=== PATIENT | male | born 1970 | race Caucasian/White ===

== ENCOUNTER 2021-03-19 17:28 | Inpatient (IN) | payer BC, MEDICAID ==
[2021-03-19] MEDS ORDERED: Sodium Chloride 0.9% 10 ML Syringe FLUSH PRN (18:08)
--- NOTE | 2021-03-19 18:11 | EDM.PDOC ---
ED HPI GENERAL MEDICAL PROBLEM - General Chief Complaint: Abdominal Pain Stated Complaint: ABDOMINAL LUMP Time Seen by Provider: 03/19/21 17:55 Source of Information: Reports: Patient, RN Notes Reviewed History Limitations: Reports: No Limitations - History of Present Illness INITIAL COMMENTS - FREE TEXT/NARRATIVE: 50-year-old gentleman presents emergency department today with a mass that has developed in his abdomen on the left side over the last couple days it is warm to the touch it is tender to the touch he does not have any nausea or vomiting still passing gas normal bowel movements history of gastric bypass and multiple surgeries patient states 70 Left Upper Abdomen Pain Score (Numeric/FACES): 7 - Related Data Allergies Allergy/AdvReac Type Severity Reaction Status Date / Time prochlorperazine edisylate Allergy Muscle Verified 03/19/21 17:51 [From Compazine] Aches trazodone Allergy Other Verified 03/19/21 17:51 venom-honey bee Allergy Swollen Verified 03/19/21 17:51 [bee venom (honey bee)] Tongue Home Meds: Home Meds Lisinopril 10 mg PO DAILY 09/02/14 [History] Pedi Multivit #22/Vit D3/Vit K [Multivitamins Chewables Tablet] 1 each PO DAILY 09/02/14 [History] Cholecalciferol (Vitamin D3) [Vitamin D3] 1 tab PO DAILY 05/31/15 [History] Calcium Carbonate [Calcium] 500 mg PO BID 10/03/18 [History] Ferrous Sulfate 325 mg PO BID 10/03/18 [History] Vitamin B Complex [B Complex] 1 each PO DAILY 10/03/18 [History] Past Medical History HEENT History: Reports: Cataract Musculoskeletal History: Reports: Other (See Below) Psychiatric History: Reports: ADD, Anxiety, Bipolar Hematologic History: Reports: Iron Deficiency - Infectious Disease History Infectious Disease History: Reports: Chicken Pox - Past Surgical History HEENT Surgical History: Reports: Other (See Below) Other HEENT Surgeries/Procedures: esphagaus surg GI Surgical History: Reports: Bariatric Procedure, Cholecystectomy, Colonoscopy, EGD, Hernia, Abdominal, Lysis of Adhesions, Small Bowel, Other (See Below) Other GI Surgeries/Procedures: mesh Musculoskeletal Surgical History: Reports: Other (See Below) Other Musculoskeletal Surgeries/Procedures:: knee cap, left wrist Social & Family History - Family History Family Medical History: No Pertinent Family History - Tobacco Use Tobacco Use Status *Q: Former Tobacco User Years of Tobacco use: 30 Packs/Tins Daily: 0.5 Used Tobacco, but Quit: Yes Month/Year Tobacco Last Used: March 2021 Second Hand Smoke Exposure: No - Caffeine Use Caffeine Use: Reports: Coffee, Energy Drinks, Soda, Tea - Alcohol Use Days Per Week of Alcohol Use: 2 Number of Drinks Per Day: 8 Total Drinks Per Week: 16 - Recreational Drug Use Recreational Drug Use: No ED ROS GENERAL - Review of Systems Review Of Systems: See Below Constitutional: Denies: Fever, Chills HEENT: Reports: No Symptoms Respiratory: Reports: No Symptoms Cardiovascular: Reports: No Symptoms GI/Abdominal: Reports: Abdominal Pain, Flatus, Other (Abdominal mass). Denies: Constipation, Diarrhea, Nausea, Vomiting : Reports: No Symptoms ED EXAM, GI/ABD - Physical Exam Exam: See Below Exam Limited By: No Limitations General Appearance: Alert, WD/WN, No Apparent Distress Respiratory/Chest: No Respiratory Distress, Lungs Clear, Normal Breath Sounds, No Accessory Muscle Use, Chest Non-Tender Cardiovascular: Regular Rate, Rhythm, No Murmur GI/Abdominal Exam: Soft, No Distention, Tender, Other (There is an abdominal mass it is in between the left upper and lower quadrants it is firm and is tender to the touch it is warm) Course - Vital Signs Last Recorded V/S: Last Vital Signs Temp 97.7 F 03/19/21 17:57 Pulse 90 03/19/21 19:41 Resp 20 03/19/21 17:57 BP 114/71 03/19/21 19:41 Pulse Ox 97 03/19/21 19:41 - Orders/Labs/Meds Orders: Active Orders 24 hr Category Date Time Status Peripheral IV Care [RC] . DIRECTED Care 03/19/21 18:08 Active Iopamidol [Isovue-300 (61%)] Med 03/19/21 19:00 Active 100 ml IV . DIRECTED Lactated Ringers [Ringers, Lactated] 1,000 ml Med 03/19/21 18:15 Active IV ASDIRECTED Sodium Chloride 0.9% [Normal Saline] 80 ml Med 03/19/21 19:00 Active IV ASDIRECTED Sodium Chloride 0.9% [Saline Flush] Med 03/19/21 18:08 Active 10 ml FLUSH ASDIRECTED PRN Peripheral IV Insertion Adult [OM.PC] Urgent Oth 03/19/21 18:08 Ordered Medication Orders Lactated Ringer's (Ringers, Lactated) 1,000 mls @ 999 mls/hr IV ASDIRECTED SIM Last Admin: 03/19/21 18:26 Dose: 999 mls/hr Documented by: LATANYA Sodium Chloride (Normal Saline) 80 mls @ 3 mls/sec IV ASDIRECTED SIM Last Admin: 03/19/21 19:00 Dose: 3 mls/sec Documented by: THUAN Iopamidol (Iopamidol 612 Mg/Ml 100 Ml Bottle) 100 ml IV . DIRECTED SIM Last Admin: 03/19/21 19:00 Dose: 100 ml Documented by: THUAN Sodium Chloride (Sodium Chloride 0.9% 10 Ml Syringe) 10 ml FLUSH ASDIRECTED PRN PRN Reason: Keep Vein Open Last Admin: 03/19/21 18:59 Dose: 10 ml Documented by: THUAN Labs: Laboratory Tests 03/19/21 03/19/21 03/19/21 Range/Units 18:25 18:25 18:25 WBC 10.3 (4.5-11.0) K/uL RBC 3.17 L (4.30-5.90) M/uL Hgb 12.5 (12.0-15.0) g/dL Hct 35.3 L (40.0-54.0) % MCV 111 H (80-98) fL MCH 39 H (27-31) pg MCHC 35 (32-36) % Plt Count 376 (150-400) K/uL Neut % (Auto) 72.2 H (36-66) % Lymph % (Auto) 13.3 L (24-44) % [place] % (Auto) 13.7 H (2-6) % Eos % (Auto) 0.5 L (2-4) % Baso % (Auto) 0.3 (0-1) % Sodium 139 L (140-148) mmol/L Potassium 4.7 (3.6-5.2) mmol/L Chloride 101 (100-108) mmol/L Carbon Dioxide 27 (21-32) mmol/L Anion Gap 15.7 H (5.0-14.0) mmol/L BUN 16 (7-18) mg/dL Creatinine 1.1 (0.8-1.3) mg/dL Est Cr Clr Drug Dosing 75.95 mL/min Estimated GFR (MDRD) > 60 (>60) Glucose 99 (74-106) mg/dL Lactic Acid 1.5 (0.4-2.0) mmol/L Calcium 8.7 (8.5-10.1) mg/dL Total Bilirubin 0.6 (0.2-1.0) mg/dL AST 13 L (15-37) U/L ALT 19 (12-78) U/L Alkaline Phosphatase 89 (46-116) U/L Troponin I < 0.017 (0.000-0.056) ng/mL Total Protein 7.1 (6.4-8.2) g/dL Albumin 2.9 L (3.4-5.0) g/dL Globulin 4.2 H (2.3-3.5) g/dL Albumin/Globulin Ratio 0.7 L (1.2-2.2) Lipase 85 (73-393) U/L Meds: Medications Generic Name Dose Route Start Last Admin Trade Name Freq PRN Reason Stop Dose Admin Lactated Ringer's 1,000 mls @ 999 mls/hr 03/19/21 18:15 03/19/21 18:26 Ringers, Lactated IV 999 mls/hr ASDIRECTED ISM Administration Sodium Chloride 80 mls @ 3 mls/sec 03/19/21 19:00 03/19/21 19:00 Normal Saline IV 3 mls/sec ASDIRECTED SIM Administration Iopamidol 100 ml 03/19/21 19:00 03/19/21 19:00 Iopamidol 612 Mg/Ml 100 Ml Bottle IV 100 ml . DIRECTED SIM Administration Sodium Chloride 10 ml 03/19/21 18:08 03/19/21 18:59 Sodium Chloride 0.9% 10 Ml Syringe FLUSH 10 ml ASDIRECTED PRN Administration Keep Vein Open Discontinued Medications Generic Name Dose Route Start Last Admin Trade Name Freq PRN Reason Stop Dose Admin Fentanyl 50 mcg 03/19/21 19:19 03/19/21 19:23 Fentanyl 100 Mcg/2 Ml Sdv IVPUSH 03/19/21 19:20 50 mcg ONETIME ONE Administration Departure - Departure Time of Disposition: 19:54 Disposition: Admitted As Inpatient 67 Condition: Fair Clinical Impression: Abdominal wall abscess - Discharge Information Referrals: PCP,None [Primary Care Provider] - Forms: ED Department Discharge Sepsis Event Note (ED) - Evaluation Sepsis Screening Result: No Definite Risk - Focused Exam Vital Signs: Vital Signs Temp Pulse Resp BP Pulse Ox 03/19/21 19:41 90 114/71 97 03/19/21 17:57 97.7 F 93 20 106/70 96 03/19/21 17:48 97.7 F 93 20 106/70 96 - My Orders Last 24 Hours: My Active Orders 03/19/21 18:08 Peripheral IV Care [RC] . DIRECTED Sodium Chloride 0.9% [Saline Flush] 10 ml FLUSH ASDIRECTED PRN Peripheral IV Insertion Adult [OM.PC] Urgent 03/19/21 18:15 Lactated Ringers [Ringers, Lactated] 1,000 ml IV ASDIRECTED 03/19/21 19:00 Iopamidol [Isovue-300 (61%)] 100 ml IV . DIRECTED Sodium Chloride 0.9% [Normal Saline] 80 ml IV ASDIRECTED - Assessment/Plan Last 24 Hours: My Active Orders 03/19/21 18:08 Peripheral IV Care [RC] . DIRECTED Sodium Chloride 0.9% [Saline Flush] 10 ml FLUSH ASDIRECTED PRN Peripheral IV Insertion Adult [OM.PC] Urgent 03/19/21 18:15 Lactated Ringers [Ringers, Lactated] 1,000 ml IV ASDIRECTED 03/19/21 19:00 Iopamidol [Isovue-300 (61%)] 100 ml IV . DIRECTED Sodium Chloride 0.9% [Normal Saline] 80 ml IV ASDIRECTED Plan: Assessment Acuity = acute Site and laterality = abdominal wall abscess with potential fistula to the transverse colon Etiology = unknown Manifestations = none Location of injury = Home Lab values = CBC, CMP, troponin, lactic acid all within normal limits CT scan describes the abscess above Plan Call discussed case with Dr. Peck at 1945 recommend admission starting antibiotics of meropenem n.p.o. at midnight plan for surgical intervention in the morning This note was dictated using [employer] voice recognition software please call with any questions on syntax or grammar.
[2021-03-19] MEDS ORDERED: Lactated Ringers 1,000 ML IV SCH (18:15)
[2021-03-19] MEDS ORDERED: Iopamidol 612 MG/ML 100 ML Bottle IV SCH (19:00)
[2021-03-19] MEDS ORDERED: Sodium Chloride 0.9% 80 ML IV SCH (19:00)
[2021-03-19] MEDS ORDERED: fentaNYL 100 MCG/2 ML SDV IVPUSH ONE (19:19)
--- NOTE | 2021-03-19 19:41 | CRLCT ---
For Patients: As a result of the Century Cures Act, medical imaging exams and procedure reports are released immediately into your electronic medical record. You may view this report before your referring provider. If you have questions, please contact your health care provider. INDICATION: Painful lump left upper quadrant. COMPARISON: [address] TECHNIQUE: 100 mL Isovue-300 IV contrast. FINDINGS: Sliding hiatus hernia with small paraesophageal component at the posterior left margin. Gastric bypass changes. Cholecystectomy clips. Multiple anchors for chronic prior extensive mesh hernia repair. Complex air and fluid in the left abdominal wall and subcutaneous soft tissues with surrounding induration of the subcutaneous adipose and thickening of the skin likely at the site of palpable finding. Fluid at the abdominal wall could be in continuity with transverse colon which is immediately deep to the apparent fluid collection with suggestion of fistulous communication (image 42 series 2). Greatest axial diameter of apparent abscess in the abdominal wall is 5.8 x 2.5 cm with craniocaudal length of 6.2 cm. This probably is in continuity with a subcutaneous fluid collection more superior and lateral which measures roughly 2.5 cm. No dilatation or inflammation of large or small bowel. No free air or free fluid in the peritoneal move. IMPRESSION: 1. Abscess with potential fistulous communication to the transverse colon in the left abdominal wall intimate to the mesh hernia repair. Abscess is on the verge of decompressing to the skin margin in the left mid abdomen with prominent surrounding inflammation and cellulitis. 2. Chronic hiatus hernia associated with bariatric Gen-en-Y gastric bypass. Please note that all CT scans at this facility use dose modulation, iterative reconstruction, and/or weight-based dosing when appropriate to reduce radiation dose to as low as reasonably achievable. Dictated by Jeremy Mckenzie MD @ 03/19/2021 7:40:[address] Jeremy Mckenzie @ Mar 19 2021 7:40PM
[2021-03-19] MEDS ORDERED: Ondansetron 4 MG/2 ML SDV IVPUSH PRN (19:58)
[2021-03-19] MEDS: Lactated Ringers 1,000 ML IV SCH (20:47)
[2021-03-19] MEDS: Meropenem 500 MG in Sodium Chloride 0.9% 50 ML IV SCH (20:47)
[2021-03-19] MEDS ORDERED: Ferrous Sulfate 325 MG Tab PO SCH (21:00)
[2021-03-19] MEDS: Calcium Carbonate 500 MG Tab.Chew PO SCH (21:26)
[2021-03-19 22:21] LABS: CORONAVIRUS COVID-19 NAA POSITIVE (NEGATIVE)
[2021-03-20] MEDS: fentaNYL 100 MCG/2 ML SDV IVPUSH PRN ×3 (01:03→16:27)
[2021-03-20] MEDS: Meropenem 500 MG in Sodium Chloride 0.9% 50 ML IV SCH ×4 (02:54→19:50)
[2021-03-20] MEDS: Lactated Ringers 1,000 ML IV SCH ×3 (06:01→21:20)
[2021-03-20] MEDS ORDERED: Bupivacaine 0.5% 50 ML MDV ONE (06:36)
[2021-03-20] MEDS ORDERED: Lidocaine 1% with EPINEPHrine 1:100,000 50 ML MDV ONE (06:37)
[2021-03-20] MEDS ORDERED: Rocuronium 50 MG/5 ML Vial ONE (07:12)
[2021-03-20] MEDS ORDERED: Neostigmine Methylsulfate 1 MG/ML 5 ML Syringe ONE (07:12)
[2021-03-20] MEDS ORDERED: Glycopyrrolate 0.2 MG/ML 5 ML MDV ONE (07:12)
[2021-03-20] MEDS ORDERED: Propofol 200 MG/20 ML SDV ONE (07:12)
[2021-03-20] MEDS ORDERED: Succinylcholine 200 MG/10 ML MDV ONE (07:12)
[2021-03-20] MEDS ORDERED: Dexamethasone 4 MG/ML SDV ONE (07:12)
[2021-03-20] MEDS ORDERED: Ondansetron 4 MG/2 ML SDV ONE (07:12)
[2021-03-20] MEDS ORDERED: fentaNYL 250 MCG/5 ML SDV ONE (07:13)
[2021-03-20] MEDS: Meropenem 500 MG SDV ONE (07:47)
[2021-03-20] MEDS: Linezolid 600 MG in Premix Bag 1 BAG IV SCH ×2 (09:49→21:17)
[2021-03-20] MEDS: Multivitamins with Iron Tab.Chew PO SCH (10:31)
[2021-03-20] MEDS: Cholecalciferol (Vitamin D3) 25 MCG Tab PO SCH (10:31)
[2021-03-20] MEDS: Vitamin B Complex Tab PO SCH (10:31)
[2021-03-20] MEDS: Lisinopril 10 MG Tab PO SCH (10:31)
[2021-03-20] MEDS: Calcium Carbonate 500 MG Tab.Chew PO SCH ×2 (10:31→21:17)
[2021-03-20] MEDS: Ferrous Sulfate 325 MG Tab PO SCH ×2 (10:31→16:28)
[2021-03-20] MEDS ORDERED: Naloxone 0.4 MG/ML SDV IVPUSH PRN (21:29)
[2021-03-20] MEDS ORDERED: diphenhydrAMINE 50 MG/ML SDV IVPUSH PRN (21:29)
[2021-03-20] MEDS: HYDROmorphone/Normal Saline 15 MG/30 ML PCA IV SCH (21:48)
[2021-03-21] MEDS: Meropenem 500 MG in Sodium Chloride 0.9% 50 ML IV SCH ×4 (02:27→19:34)
[2021-03-21] MEDS: Lactated Ringers 1,000 ML IV SCH (06:32)
[2021-03-21] MEDS ORDERED: Meropenem 500 MG SDV ONE ×3 (06:34→13:52)
[2021-03-21] MEDS: Ferrous Sulfate 325 MG Tab PO SCH ×2 (07:41→16:42)
[2021-03-21] MEDS ORDERED: fentaNYL 250 MCG/5 ML SDV ONE ×2 (08:53→11:10)
[2021-03-21] MEDS ORDERED: Neostigmine Methylsulfate 1 MG/ML 5 ML Syringe ONE (08:54)
[2021-03-21] MEDS ORDERED: Ondansetron 4 MG/2 ML SDV ONE (08:54)
[2021-03-21] MEDS ORDERED: Succinylcholine 200 MG/10 ML MDV ONE (08:54)
[2021-03-21] MEDS ORDERED: Glycopyrrolate 0.2 MG/ML 5 ML MDV ONE (08:54)
[2021-03-21] MEDS ORDERED: Propofol 200 MG/20 ML SDV ONE (08:54)
[2021-03-21] MEDS ORDERED: Rocuronium 50 MG/5 ML Vial ONE ×3 (08:54→15:00)
[2021-03-21] MEDS ORDERED: Dexamethasone 4 MG/ML SDV ONE (08:54)
[2021-03-21] MEDS: Linezolid 600 MG in Premix Bag 1 BAG IV SCH ×2 (09:17→21:24)
--- NOTE | 2021-03-21 09:25 | PN ---
DATE OF SERVICE: 03/21/2021 SUBJECTIVE: Beni is n.p.o. He will be having surgery today. He has no questions or concerns. OBJECTIVE: GENERAL: Beni Genao is a 50-year-old male. He is alert and orientated. VITAL SIGNS: TPR; No temp, pulse 73, respirations 16. Blood pressure 111/69. HEART: Regular rate and rhythm. LUNGS: Clear. ABDOMEN: Dressings dry and intact. ASSESSMENT: Abscess abdominal, left abdomen. PLAN: After preoperative evaluation and discussion of possible risks and possible complications, the patient wishes to proceed with surgical procedure. Ashlyn Patel PA-C /[id number]
[2021-03-21] MEDS: Meropenem 500 MG SDV ONE (11:31)
[2021-03-21] MEDS: Multivitamins with Iron Tab.Chew PO SCH (14:42)
[2021-03-21] MEDS: Vitamin B Complex Tab PO SCH (14:43)
[2021-03-21] MEDS: Calcium Carbonate 500 MG Tab.Chew PO SCH (14:43)
[2021-03-21] MEDS: Cholecalciferol (Vitamin D3) 25 MCG Tab PO SCH (14:43)
[2021-03-21] MEDS ORDERED: fentaNYL 100 MCG/2 ML SDV IV ONE (15:01)
[2021-03-21] MEDS: Lisinopril 10 MG Tab PO SCH (16:40)
[2021-03-21] MEDS ORDERED: Acetaminophen 500 MG Tab PO PRN (17:00)
[2021-03-21] MEDS ORDERED: diphenhydrAMINE 50 MG/ML SDV IVPUSH PRN (17:00)
[2021-03-21] MEDS ORDERED: Albuterol/Ipratropium 3.0-0.5 MG/3 ML Neb Soln INH PRN (17:00)
[2021-03-21] MEDS ORDERED: Labetalol 20 MG/4 ML Syringe IVPUSH PRN (17:00)
[2021-03-21] MEDS ORDERED: Metoclopramide 10 MG/2 ML SDV IVPUSH PRN (17:00)
[2021-03-21] MEDS ORDERED: Dextrose 5%-Lactated Ringers 1,000 ML IV SCH (17:00)
[2021-03-21] MEDS ORDERED: hydrOXYzine HCL 100 MG/2 ML SDV IM PRN (17:00)
[2021-03-21] MEDS: Pantoprazole 40 MG Vial IVPUSH SCH (18:20)
[2021-03-21] MEDS: Acetaminophen 500 MG Tab PO SCH (18:20)
[2021-03-21] MEDS: MVI, Adult with Vitamin K 10 ML, Thiamine 200 MG, Zinc/Copper/Manganese/Selenium 1 ML i... IV SCH ×4 (18:20)
[2021-03-22] MEDS: Meropenem 500 MG in Sodium Chloride 0.9% 50 ML IV SCH ×4 (01:24→20:36)
[2021-03-22] MEDS: Acetaminophen 500 MG Tab PO SCH ×3 (01:30→18:25)
[2021-03-22] MEDS: HYDROmorphone/Normal Saline 15 MG/30 ML PCA IV SCH ×2 (04:27→18:41)
[2021-03-22] MEDS: Dextrose 5%-Lactated Ringers 1,000 ML IV SCH (07:52)
--- NOTE | 2021-03-22 08:41 | PN ---
DATE OF SERVICE: 03/22/2021 SUBJECTIVE: Beni is postop day 1. His pain is controlled. He has been up ambulating. Oral intake 140. Urine output 1975. CECILLE drains have put out 60, 105, 66, and 120 of serosanguineous drainage. Beni is alert and oriented. He has no questions or concerns. OBJECTIVE: GENERAL: Beni Genao is a 50-year-old male. He is alert and oriented as stated. VITAL SIGNS: TPR is 95.8, 79, 16, blood pressure 96/48. HEENT: Negative. NECK: Supple. HEART: Regular rate and rhythm. LUNGS: Clear. ABDOMEN: Dressings dry and intact. Abdominal binder is on. EXTREMITIES: Without peripheral edema. ASSESSMENT: Exploratory laparotomy with removal of intraperitoneal mesh and transverse colon resection, lysis of adhesions, small bowel resection x3 with small bowel strictureplasty, placement of Vicryl mesh, and debridement of abdominal wall. Date of procedure 03/21/2021. Surgeon: Irvin Peck MD. PLAN: 1. Schedule and have consent signed for delayed primary closure with IV local sedation and TAP block, , 03/24/2021, 0715. Surgeon, Irvin Peck MD. N.p.o. after midnight. 2. Check CBC, CMP, mag, phos in a.m. 3. Decrease IV to 100 mL/hr. 4. Upper GI with post Gen-en-Y gastric bypass protocol. 5. Step 2 gastric bypass diet with serial. May include oatmeal. 6. Colace 100 mg p.o. b.i.d. 7. Dulcolax 10 mg tabs b.i.d. orally. 8. Continued use of incentive spirometer and ambulation. 9. We will evaluate p.r.n. or in a.m. Ashlyn Patel PA-C /[id number]
[2021-03-22] MEDS: Bisacodyl 5 MG Tab PO SCH ×2 (08:55→20:40)
[2021-03-22] MEDS: Celecoxib 200 MG Cap PO SCH ×2 (08:55→20:40)
[2021-03-22] MEDS: Docusate Sodium 100 MG Cap PO SCH ×2 (08:55→20:40)
[2021-03-22] MEDS: Linezolid 600 MG in Premix Bag 1 BAG IV SCH ×2 (09:00→21:22)
[2021-03-22] MEDS: Lisinopril 10 MG Tab PO SCH (09:21)
[2021-03-22] MEDS: Pantoprazole 40 MG Vial IVPUSH SCH (18:24)
[2021-03-22] MEDS: MVI, Adult with Vitamin K 10 ML, Thiamine 200 MG, Zinc/Copper/Manganese/Selenium 1 ML i... IV SCH ×4 (18:24)
[2021-03-23] MEDS: Meropenem 500 MG in Sodium Chloride 0.9% 50 ML IV SCH ×4 (02:55→19:00)
[2021-03-23] MEDS: Acetaminophen 500 MG Tab PO SCH ×3 (02:56→17:12)
[2021-03-23] MEDS ORDERED: Iopamidol 612 MG/ML 50 ML SDV PO STA (03:45)
[2021-03-23] MEDS: Dextrose 5%-Lactated Ringers 1,000 ML IV SCH ×2 (05:22→15:42)
[2021-03-23] MEDS: Bisacodyl 5 MG Tab PO SCH ×2 (08:01→20:02)
[2021-03-23] MEDS: Docusate Sodium 100 MG Cap PO SCH ×2 (08:01→20:02)
[2021-03-23] MEDS: Lisinopril 10 MG Tab PO SCH (08:01)
[2021-03-23] MEDS: Celecoxib 200 MG Cap PO SCH ×2 (08:01→20:02)
[2021-03-23] MEDS: HYDROmorphone/Normal Saline 15 MG/30 ML PCA IV SCH ×2 (08:40→22:10)
[2021-03-23] MEDS ORDERED: Cyanocobalamin (Vitamin B12) 1,000 MCG/ML SDV IM ONE (09:00)
[2021-03-23] MEDS: Linezolid 600 MG in Premix Bag 1 BAG IV SCH ×2 (09:01→21:20)
[2021-03-23] MEDS: Magnesium Sulfate/Water 2 GM/50 ML BAG IV SCH ×3 (09:04→22:33)
--- NOTE | 2021-03-23 11:25 | CR ---
UGI Limited HISTORY: Postop FINDINGS: Patient swallowed water-soluble contrast. Upright views of the abdomen show no evidence of extravasation or obstruction. There are multiple surgical drains in the abdomen IMPRESSION: Status post abdominal surgery No extravasation or obstruction seen
--- NOTE | 2021-03-23 15:23 | PN ---
DATE OF SERVICE: 03/23/2021 SUBJECTIVE: Beni states his pain is controlled, had upper GI this morning. Vital signs have been stable. He has no other questions or concerns. OBJECTIVE: GENERAL: Beni Genao is a 50-year-old male. VITAL SIGNS: TPR is 96.8, 88, 18, blood pressure 100/61. HEENT: Negative. NECK: Supple. HEART: Regular rate and rhythm. LUNGS: Clear. ABDOMEN: Dressings dry and intact. Abdominal binder is on. CECILLE drains are intact, all 4 of them, and have put out 37, 215, 35, and 48 respectively, and they are all serosanguineous. EXTREMITIES: Without peripheral edema. ASSESSMENT: Exploratory laparotomy with removal of intraperitoneal mesh and transverse colon resection, lysis of adhesions, small bowel resection x3 with small bowel strictureplasty, placement of Vicryl mesh, and debridement of the abdominal wall. Date of procedure 03/21/2021. Surgeon: Irvin Peck MD. Incision and drainage of abscess. Date 03/21/2021. Surgeon: Irvin Peck MD. PLAN: 1. N.p.o. after midnight. Orders are written for delayed primary closure. 2. Magnesium 2 g IV q.6 hours x72 hours, and check CBC, CMP, and phos in a.m. 3. We will evaluate p.r.n. or in a.m. Ashlyn Patel PA-C /[id number]
[2021-03-23] MEDS: Pantoprazole 40 MG Vial IVPUSH SCH (17:11)
[2021-03-24] MEDS: Acetaminophen 500 MG Tab PO SCH ×3 (02:31→17:22)
[2021-03-24] MEDS: Meropenem 500 MG in Sodium Chloride 0.9% 50 ML IV SCH ×4 (02:31→20:15)
[2021-03-24] MEDS: Magnesium Sulfate/Water 2 GM/50 ML BAG IV SCH ×4 (05:17→22:57)
[2021-03-24] MEDS: Dextrose 5%-Lactated Ringers 1,000 ML IV SCH ×2 (05:27→15:20)
[2021-03-24] MEDS ORDERED: fentaNYL 100 MCG/2 ML SDV ONE (06:09)
[2021-03-24] MEDS ORDERED: Midazolam 1 MG/ML 2 ML SDV ONE (06:09)
[2021-03-24] MEDS ORDERED: Propofol 200 MG/20 ML SDV ONE ×3 (06:10→07:58)
[2021-03-24] MEDS: Lidocaine 1% with EPINEPHrine 1:100,000 50 ML MDV ONE ×2 (07:27→07:42)
[2021-03-24] MEDS: Bupivacaine 0.5% 50 ML MDV ONE ×2 (07:27→07:42)
[2021-03-24] MEDS: Meropenem 500 MG SDV ONE ×2 (07:28→07:42)
[2021-03-24] MEDS: Lisinopril 10 MG Tab PO SCH (09:01)
[2021-03-24] MEDS: Bisacodyl 5 MG Tab PO SCH ×2 (09:04→21:39)
[2021-03-24] MEDS: Celecoxib 200 MG Cap PO SCH ×2 (09:04→21:39)
[2021-03-24] MEDS: Docusate Sodium 100 MG Cap PO SCH ×2 (09:04→21:38)
[2021-03-24] MEDS: Linezolid 600 MG in Premix Bag 1 BAG IV SCH ×2 (09:49→21:39)
--- NOTE | 2021-03-24 10:39 | PN ---
DATE OF SERVICE: 03/24/2021 SUBJECTIVE: Beni is n.p.o. for delayed primary closure. Pain is controlled. Vital signs stable, and labs were reviewed. OBJECTIVE: GENERAL: Beni is a 50-year-old male, alert and oriented. VITAL SIGNS: 97.8, 76, 16, blood pressure 120/64. HEENT: Negative. NECK: Supple. HEART: Regular rate and rhythm. LUNGS: Clear. ABDOMEN: Dressings dry and intact. Abdominal binder is on. EXTREMITIES: Negative. ASSESSMENT: 1. Exploratory laparotomy with removal of intraperitoneal mesh and transverse colon resection, lysis of adhesions, small bowel resection x3 with small bowel strictureplasty, placement of Vicryl mesh, and debridement of abdominal wall. Date of procedure 03/21/2021. Surgeon: Irvin Peck MD. 2. Incision and drainage of abdominal abscess, 03/21/2021. Surgeon: Irvin Peck MD. PLAN: Orders to be written after delayed primary closure. Ashlyn Patel PA-C /[id number]
[2021-03-24] MEDS: HYDROmorphone/Normal Saline 15 MG/30 ML PCA IV SCH (17:17)
[2021-03-24] MEDS: Pantoprazole 40 MG Vial IVPUSH SCH (17:19)
[2021-03-25] MEDS: Acetaminophen 500 MG Tab PO SCH ×3 (02:35→17:26)
[2021-03-25] MEDS: Meropenem 500 MG in Sodium Chloride 0.9% 50 ML IV SCH ×4 (02:39→19:59)
[2021-03-25] MEDS: Magnesium Sulfate/Water 2 GM/50 ML BAG IV SCH ×4 (04:48→23:10)
[2021-03-25] MEDS: Celecoxib 200 MG Cap PO SCH ×2 (08:06→21:56)
[2021-03-25] MEDS: Docusate Sodium 100 MG Cap PO SCH ×2 (08:06→21:56)
[2021-03-25] MEDS: Bisacodyl 5 MG Tab PO SCH ×2 (08:06→21:56)
[2021-03-25] MEDS: Lisinopril 10 MG Tab PO SCH (08:08)
[2021-03-25] MEDS: Linezolid 600 MG in Premix Bag 1 BAG IV SCH ×2 (09:51→21:57)
--- NOTE | 2021-03-25 10:37 | PN ---
DATE OF SERVICE: 03/25/2021 SUBJECTIVE: Beni had delayed primary closure yesterday. Today, he reports he is hungry and wants to go home. 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 REVIEW OF SYSTEMS: Remainder of review of systems negative for any pertinent positives and negatives. OBJECTIVE: GENERAL: Beni Genao is a 50-year-old male. He is alert and oriented. VITAL SIGNS: TPR 95.4, 66, 16, blood pressure 118/88. HEENT: Negative. NECK: Supple. HEART: Regular rate and rhythm. LUNGS: Clear. ABDOMEN: Abdominal binder is on. EXTREMITIES: Without peripheral edema. ASSESSMENT: 1. Delayed primary closure for open abdominal incision, 03/24/2021. 2. Exploratory laparotomy with removal of intraperitoneal mesh and transverse colon resection, lysis of adhesions, small bowel resection x3 with small bowel strictureplasty, placement of Vicryl mesh, and debridement of abdominal wall. 3. Date of procedure 03/21/2021. Surgeon: Irvin Peck MD. PLAN: 1. Regular diet. 2. Albumin 50 g IV x3 days. 3. Start dressing changes on open abdominal incision. Pack with dry 4x4s twice daily. May shower before one of the dressing changes leaving incision open and packing afterwards. 4. May shower. 5. Decrease IV to TKO. 6. Check CBC, CMP, and phos in a.m. 7. We will evaluate p.r.n. or in a.m. Ashlyn Patel PA-C /[id number]
[2021-03-25] MEDS: HYDROmorphone/Normal Saline 15 MG/30 ML PCA IV SCH (10:43)
[2021-03-25] MEDS: Dextrose 5%-Lactated Ringers 1,000 ML IV SCH (11:16)
[2021-03-25] MEDS: Pantoprazole 40 MG Tab.CR PO SCH (17:26)
[2021-03-26] MEDS: Acetaminophen 500 MG Tab PO SCH ×3 (01:18→17:25)
[2021-03-26] MEDS: Meropenem 500 MG in Sodium Chloride 0.9% 50 ML IV SCH ×4 (01:19→20:08)
[2021-03-26] MEDS: HYDROmorphone/Normal Saline 15 MG/30 ML PCA IV SCH (01:59)
[2021-03-26] MEDS: Magnesium Sulfate/Water 2 GM/50 ML BAG IV SCH (04:40)
[2021-03-26] MEDS: Bisacodyl 5 MG Tab PO SCH ×2 (10:05→22:40)
[2021-03-26] MEDS: Lisinopril 10 MG Tab PO SCH (10:05)
[2021-03-26] MEDS: Docusate Sodium 100 MG Cap PO SCH ×2 (10:05→22:40)
[2021-03-26] MEDS: Celecoxib 200 MG Cap PO SCH ×2 (10:05→22:40)
[2021-03-26] MEDS: Ciprofloxacin in D5W 400 MG in Premix Bag 1 BAG IV SCH ×4 (10:44→22:40)
[2021-03-26] MEDS: Pantoprazole 40 MG Tab.CR PO SCH (16:19)
[2021-03-27] MEDS: HYDROmorphone/Normal Saline 15 MG/30 ML PCA IV SCH (02:24)
[2021-03-27] MEDS: Meropenem 500 MG in Sodium Chloride 0.9% 50 ML IV SCH ×4 (02:26→19:42)
[2021-03-27] MEDS: Acetaminophen 500 MG Tab PO SCH ×3 (02:27→17:33)
[2021-03-27] MEDS: oxyCODONE 5 MG Tab PO PRN ×4 (08:32→22:05)
[2021-03-27] MEDS: Docusate Sodium 100 MG Cap PO SCH ×2 (08:40→22:06)
[2021-03-27] MEDS: Celecoxib 200 MG Cap PO SCH ×2 (08:40→22:06)
[2021-03-27] MEDS: Bisacodyl 5 MG Tab PO SCH ×2 (08:40→22:06)
[2021-03-27] MEDS: Lisinopril 10 MG Tab PO SCH (08:41)
[2021-03-27] MEDS: Ciprofloxacin in D5W 400 MG in Premix Bag 1 BAG IV SCH ×4 (11:07→22:07)
[2021-03-27] MEDS: Cyclobenzaprine 10 MG Tab PO PRN ×2 (11:11→19:41)
[2021-03-27] MEDS: Pantoprazole 40 MG Tab.CR PO SCH (17:10)
[2021-03-28] MEDS: Acetaminophen 500 MG Tab PO SCH ×2 (02:06→09:54)
[2021-03-28] MEDS: oxyCODONE 5 MG Tab PO PRN ×4 (02:06→14:01)
[2021-03-28] MEDS: Meropenem 500 MG in Sodium Chloride 0.9% 50 ML IV SCH ×3 (02:06→13:54)
[2021-03-28] MEDS: Bisacodyl 5 MG Tab PO SCH (07:30)
[2021-03-28] MEDS ORDERED: Magnesium Hydroxide 400 MG/5 ML Susp 30 ML Cup PO ONE (07:47)
[2021-03-28] MEDS: Docusate Sodium 100 MG Cap PO SCH (08:20)
[2021-03-28] MEDS: Celecoxib 200 MG Cap PO SCH (08:20)
[2021-03-28] MEDS: Lisinopril 10 MG Tab PO SCH (08:20)
[2021-03-28] MEDS ORDERED: Magnesium Hydroxide 400 MG/5 ML Susp 30 ML Cup PO PRN (09:00)
[2021-03-28] MEDS: Ciprofloxacin in D5W 400 MG in Premix Bag 1 BAG IV SCH ×2 (09:53)
[2021-03-28 10:44] VITALS: BP 120/78; PULSE 75
[2021-03-28] MEDS: Cyclobenzaprine 10 MG Tab PO PRN (14:01)
--- NOTE | 2021-03-28 14:52 | OR ---
DATE OF PROCEDURE: 03/20/2021 SURGEON: Irvin Peck MD PREOPERATIVE DIAGNOSIS: Intraabdominal abscess extending into the subcutaneous tissue, left upper quadrant. POSTOPERATIVE DIAGNOSIS: Intraabdominal abscess extending into rectus sheath, left upper quadrant of abdomen. PROCEDURE PERFORMED: Incision and drainage of intraabdominal abscess extending into rectus sheath. ANESTHESIA: General. INDICATION FOR PROCEDURE: Please see progress note dictated earlier today. DETAILS OF PROCEDURE: The patient was taken to the operating room, and after general endotracheal anesthesia was induced, the abdomen was prepped and draped. The previously used left subcostal incision was then reused and carried down through the skin and subcutaneous tissue. Initially, in the subcutaneous tissue plane, there was no abscess, just edema in the soft tissues. As one incised the rectus sheath, then the abscess material was identified. Creamy purulent material was evacuated. This then extended downward through the posterior rectus sheath and into the area of the intraperitoneal mesh. This area was then evacuated of some additional purulent material, and at that point, the procedure was then concluded. The wound was packed open with iodoform gauze and the patient taken to the recovery room in satisfactory condition. There were no evident complications. Irvin Peck MD /[id number]
--- NOTE | 2021-03-28 16:14 | OR ---
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 POSTOPERATIVE DIAGNOSES: 1. 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 2. Intraabdominal abscess. PROCEDURES PERFORMED: Exploratory laparotomy with lysis of extensive adhesions and: 1. Resection of transverse colon (06364). 2. Small bowel resection x3 (90413, 95859, 56396). 3. Separate enteroenterostomy to restore small bowel Gen-en-Y configuration (72044). 4. Small bowel stricturoplasty (46014). 5. Drainage of intraabdominal abscess (52446). 6. Debridement of necrotizing infection in abdominal wall associated with colocutaneous fistula and associated abscess involving abdominal wall (74107), removal of intraperitoneal mesh (36741). 7. Placement of Vicryl mesh between pelvic and abdominal wall to limit recurrent adhesion formation (99814). ANESTHESIA: General. JUMP ROLL OPERATOR: Ashlyn Patel PA-C INDICATION FOR PROCEDURE: The patient presented two afternoons ago with an abscess involving left upper quadrant. By CT scan, this appeared to extend down into the underlying intraperitoneal mesh with probable involvement of the colon. The abscess was drained yesterday, and the patient at this point is to undergo a definitive treatment of this using removal of infected mesh and bowel resection as indicated. Potential risks of the procedure including bleeding, infection, injury to underlying viscera, leaks from any GI tract closures, as well as the possibility of cardiopulmonary, septic, or hemorrhagic complications leading to were all discussed, and the patient wishes to proceed. DETAILS OF PROCEDURE: The patient was taken to the operating room, and after general endotracheal anesthesia was induced, a Fox catheter was inserted and the abdomen prepped and draped. The previous abscess dressing was removed as well. A midline incision was made from the xiphoid, eventually extending down essentially to the pubis and carried out to the full thickness of abdominal wall. Upon entering the abdomen, there were 3 sets of mesh that were encountered, all of which appeared to be somewhat contaminated at this point, and the mesh in the midline was then sequentially divided, and the patient was noted to have more or less florid adhesions. Adhesiolysis was initiated after which then the mesh was dissected away from the abdominal wall which included the area of the fistula formation with both the small bowel and large bowel adherent to the mesh underlying the site drained yesterday and between those loops was an additional intraabdominal abscess. This was evacuated, and cultures were obtained. Actually, all the mesh was detached from the abdominal wall. There was an adherent loop of transverse colon to the mesh as well several loops of small bowel. To the extent possible, these were dissected free. The colon was then divided proximally and distally to the point of its attachment to the mesh, and eventually, 3 separate small bowel resections were required, and in each case, these were relatively short loops of bowel that were adherent to the mesh and/or were deserosalized after dissection and freed from the mesh, and in all 3 locations, the small bowel was reanastomosed with internal firing of the CARIE 60 mm stapler followed by the common opening closed with a purple load and the angles anastomosed and mesenteric defects approximated with some 3-0 Vicryl stitch. At this point, the patient was also noted to have a separate small bowel stricture in the mid common limb, and this was treated with a stricturoplasty with enterotomy on the antimesenteric aspect of the strictured location and then one arm of the bowel placed on each aspect of the bowel as it flipped over on itself and then fired. Common openings similarly closed with a purple load and the angles anastomosed and the mesenteric defects were closed with 3-0 Vicryl stitch as well. At this point, it was felt that the common limb was somewhat too short, and given this, the Gen limb was detached flush with the jejunojejunostomy, and then this had moved up more proximally where the Gen-en-Y anatomy was then reconstructed with the same sequence of staplers and mesenteric defect closures as noted above. The final small bowel anatomy left in this case, the Gen limb was 90 cm, biliopancreatic limb 40 cm, and common limb 240 cm. At this point, some abdominal wall necrosis from the inside heading out toward the abscess cavity was debrided. This included peritoneum, fascia, muscle, some granulation tissue, and probable associated subcutaneous tissue and that was separate dressing as well. At this point, the abdomen was irrigated with meropenem-containing saline solution until all areas were clear. The colon anastomosis was then completed with 2 internal firings of the CARIE liu load. The common opening closed transversely with purple loads and that anastomosis was then also reinforced with 3-0 Vicryl stitch at the mesenteric defect and at the beginning of the anastomosis. Fibrin sealant was then placed to reinforce the anastomosis, focusing particularly on the colon anastomosis which was felt to be somewhat more tenuous than the small bowel anastomosis, and 4 Jarrod-Haines drains were placed in various locations with two on each side of the abdomen. The patient had no omentum available for coverage of the abdominal incision, so a Vicryl mesh measuring 12 inches squared was placed down in the pelvis and alongside of the abdominopelvic wall. The midline fascia was then approximated with #2 Vicryl stitch, and the subcutaneous tissue and skin were left open as these were felt to be at high risk for wound infection, and we intend to close these up in 2-1/2 days pending the patient's clinical course remains satisfactory. At this point, no further problems were noted. The patient was taken to the recovery room in satisfactory condition Physician assistant city attorney, Ashlyn Patel, played an essential role in assisting in this case, helping to position the patient, retract structures as needed, as well as suturing and cutting sutures when indicated. Her presence improved the patient's safety and decreased the operative time. Irvin Peck MD /[id number]
--- NOTE | 2021-03-28 17:39 | PN ---
DATE OF SERVICE: 03/27/2021 The patient has been afebrile with stable vital signs. We will switch over to oral pain medication today and shower. Continue with present IV antibiotics, and if he has not moved his bowels, we will continue with bowel stimulation. Irvin Peck MD /[id number]
--- NOTE | 2021-03-28 17:44 | PN ---
DATE OF SERVICE: 03/20/2021 This is a 50-year-old presenting with an obvious abscess in the left upper quadrant. He was admitted overnight and started on IV antibiotics. The patient has a reddened enlarged mass affecting the left upper quadrant underlying the previous incision in that area. This overlies some previously placed intraperitoneal mesh which had been positioned roughly [address] scan shows an abscess with extension into the intraperitoneal location and up into the area of the mesh. Plan today will be to proceed with incision and drainage of the abscess to control sepsis and then tomorrow we will proceed with laparotomy with correction of the problem, which will likely require some bowel resection with some suggestion of this extending into the colon and/or small bowel which is adherent to the mesh as well. Potential risks of today's procedure were reviewed including bleeding and infection, and the patient wishes to proceed. Surgery will be undertaken later this morning. Irvin Peck MD /[id number]
--- NOTE | 2021-03-28 18:36 | PN ---
DATE OF SERVICE: 03/26/2021 The patient has been afebrile with stable vital signs. Still has not moved his bowels as of yet. We will work on getting bowels going over the next day or so. We will continue the Colace and Dulcolax oral tablets and he has also been taking some prune juice. Otherwise, his cultures came back showing Escherichia coli and Strep viridans. We will discontinue the Zyvox. Continue with the meropenem and add some Cipro to the antibiotic mix. Otherwise, maximize activity and work with pulmonary toilet. We will leave him on the INTAKE MAN for today with his extensive incision and most likely switch him over to oral pain medicine tomorrow. Irvin Peck MD /[id number]
--- NOTE | 2021-03-28 19:45 | PN ---
DATE OF SERVICE: 03/28/2021 SUBJECTIVE: Beni is starting to pass flatus. Pain is controlled. Oral intake adequate. Vital signs stable. REVIEW OF SYSTEMS: Remainder of review of systems negative for any pertinent positives and negatives. OBJECTIVE: GENERAL: Beni Genao is a 50-year-old male. He is alert and orientated. VITAL SIGNS: TPR is 96, 74, 18, blood pressure 127/87. HEENT: Negative. NECK: Supple. HEART: Regular rate and rhythm. LUNGS: Clear. ASSESSMENT: 1. Tested positive for coronavirus disease. 2. Delayed primary closure for open abdominal incision on 03/24/2021, Irvin Peck MD, surgeon. 3. Exploratory laparotomy with removal of intraperitoneal mesh, transverse colon resection, lysis of adhesions, small bowel resection x3 with small-bowel strictureplasty, placement of Vicryl mesh, and debridement of abdominal wall. 4. Date of procedure: 03/21/2021. Surgeon: Irvin Peck MD. PLAN: 1. Give 1 dose of Milk of Magnesia now and then Milk of Magnesia orally 30 mL b.i.d. p.r.n. 2. Saline enema. 3. We will evaluate p.r.n. or in a.m. Ashlyn Patel PA-C /[id number]
--- NOTE | 2021-03-29 11:09 | DISCH ---
ADMISSION DIAGNOSIS: Abdominal abscess. DISCHARGE DIAGNOSES: 1. Incision and drainage of intraabdominal abscess extending into rectus sheath for intraabdominal abscess, left upper quadrant. Date of procedure: 03/20/2021. 2. Resection of transverse colon, small bowel resection x3. 3. Separate enterotomy to restore small bowel Gen-en-Y configuration. 4. Small bowel strictureplasty. 5. Drainage of intraabdominal abscess. 6. Debridement of necrotizing infection of the abdominal wall associated with colocutaneous intraperitoneal mesh. 7. Placement of Vicryl mesh between pelvic and abdominal wall to limit recurrent adhesion formation. POSTOPERATIVE DIAGNOSES: 1. 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 2. Intraabdominal abscess. Date of procedure: 03/21/2021. Surgeon: Irvin Peck MD. HISTORY: Beni Genao is a 50-year-old male who presented 2 days ago with an abscess involving left upper quadrant. After preoperative evaluation and discussion of possible risks and possible complications, he wished to proceed with surgical procedure. HOSPITAL COURSE: Beni had his incision and drainage of his abdominal abscess on 03/20/2021 and second surgical procedure on 03/21/2021. He had no operative complications. Prior to surgery, he did test positive for coronavirus. Beni had no postop complications. His pain was well managed with STAINED GLASS GLAZIER and then he was switched to oral pain medication. He was on a step 2 gastric bypass diet until he had a bowel movement, then was advanced to regular diet. He remained afebrile on antibiotic for Escherichia coli, viridans streptococcus. Remainder of the hospitalization was uneventful. He was able to be discharged to home on 03/28/2021. PHYSICAL EXAMINATION: GENERAL: Beni Genao is a 50-year-old male. VITAL SIGNS: Height is 5 feet 6.9 inches, weight is 174 pounds. TPR is 95.8, 75, 18, blood pressure 120/78. HEENT: Negative. NECK: Supple. HEART: Regular rate and rhythm. LUNGS: Clear. ABDOMEN: Aquacel dressings on. Abdominal binder is on. EXTREMITIES: Without peripheral edema. DISPOSITION: Discharged to home. CONDITION: Stable and improving. FOLLOWUP APPOINTMENT: Irvin Peck MD on 04/06/2021 at 10 a.m. HOME MEDICATIONS: 1. Augmentin 875 mg one p.o. b.i.d. #14. 2. Celebrex 200 mg p.o. b.i.d. #28. 3. Oxycodone 5 mg p.o. q.4 hours p.r.n. pain #13. 4. He is to resume his home medications. DIET: Usual diet as tolerated. Drink 8 to 10 glasses of water a day. ACTIVITY: No lifting over 10 pounds for 6 weeks. DISCHARGE INSTRUCTIONS: Driving: Do not drive for 1 week. Shower/bathing: May shower. Keep operative site clean and dry. Take Aquacel dressing off on , 03/31/2021. Pack open abdominal wound with gauze and cover with an ABD twice a day. Wear abdominal binder for 6 weeks and then as tolerated. Notify provider if any fever, increased pain, swelling, redness, drainage, nausea, or vomiting. Use incentive spirometer 10 times every hour while awake. /[id number]
--- NOTE | 2021-03-31 15:05 | OR ---
DATE OF PROCEDURE: 03/24/2021 SURGEON: Irvin Peck MD PREOPERATIVE DIAGNOSIS: Open abdominal incision. POSTOPERATIVE DIAGNOSIS: Open abdominal incision. OPERATIVE PROCEDURE: Delayed primary closure of open abdominal incision. ANESTHESIA: Local plus IV sedation. INDICATION FOR PROCEDURE: This is a 50-year-old status post a complex bowel resection case along with drainage of intraabdominal abscess and removal of intraperitoneal mesh. The patient has incision with skin and subcutaneous tissue open from the xiphoid to the pubis, and at this point, the plan is to proceed with delayed primary closure. Potential risks including bleeding and infection were reviewed, and the patient wishes to proceed. DETAILS OF PROCEDURE: The patient was taken to the operating room, placed in a supine position. IV sedation was administered, after which the operative dressing was taken down and wound inspected, found to be clean. The incision was then prepped and draped, anesthetized with 1% lidocaine, mixed with Marcaine and closed with 2 layers of 3-0 and 4-0 Vicryl stitch deep and andie for the skin. Using ultrasound guidance, bilateral transversus abdominis plane blocks were placed and the procedure concluded. The patient was taken to the recovery room in satisfactory condition. There were no evident complications. Irvin Peck MD /[id number]
== END 2021-03-28 16:05 | disposition home or self-care (01) | DRG 711 ==
LOC: JP.ED 17:28 → JP.MS 19:55
PROVIDERS: ADMIT Surgery; ATTEND Surgery
PROC: 0D9P0ZZ Drainage of Rectum, Open Approach (ICD-10-PCS; 2021-03-20)
PROC: 0W9G0ZZ Drainage of Peritoneal Cavity, Open Approach (ICD-10-PCS; principal; 2021-03-21)
PROC: 0DTL0ZZ Resection of Transverse Colon, Open Approach (ICD-10-PCS; principal; 2021-03-21)
PROC: 0WPF0JZ Removal of Synthetic Substitute from Abdominal Wall, Open Approach (ICD-10-PCS; principal; 2021-03-21)
PROC: 0D1A0ZA Bypass Jejunum to Jejunum, Open Approach (ICD-10-PCS; principal; 2021-03-21)
PROC: 0DT80ZZ Resection of Small Intestine, Open Approach (ICD-10-PCS; principal; 2021-03-21)
DX: T81.49XA Infection following a procedure, other surgical site, initial encounter (principal); K65.1 Peritoneal abscess; U07.1 COVID-19; Y83.8 Other surgical procedures as the cause of abnormal reaction of the patient, or of later complication, without mention of misadventure at the time of the procedure; Y92.89 Other specified places as the place of occurrence of the external cause; F98.8 Other specified behavioral and emotional disorders with onset usually occurring in childhood and adolescence; F41.9 Anxiety disorder, unspecified; Z90.49 Acquired absence of other specified parts of digestive tract; K63.2 Fistula of intestine; K66.0 Peritoneal adhesions (postprocedural) (postinfection); F31.9 Bipolar disorder, unspecified; Z98.84 Bariatric surgery status
CPT/HCPCS: 0241U; 36415; 74177; 74240; 74240-26; 80053; 82728; 83605; 83690; 83735; 83880; 84100; 84484; 85025; 85027; 87070; 87075; 87077; 87186; 87205; 88307; 94762; 96374; 99285; 99285-25; A9270-GY; C1781; C9113; J0171; J0330; J0744; J1100; J1170; J2020; J2185; J2250; J2405; J2704; J2710; J2795; J3010; J3411; J3420; J3475; J3490; J7120; J7121; P9047; Q9967

== ENCOUNTER 2021-11-17 05:53 | Inpatient (IN) | payer BC, MEDICAID ==
[2021-11-17] MEDS ORDERED: Acetaminophen 500 MG Tab PO ONE (06:00)
[2021-11-17] MEDS ORDERED: Gabapentin 300 MG Cap PO ONE (06:00)
[2021-11-17] MEDS ORDERED: Celecoxib 200 MG Cap PO ONE (06:00)
[2021-11-17] MEDS ORDERED: Dextrose 5%-Lactated Ringers 1,000 ML IV SCH (06:15)
[2021-11-17] MEDS ORDERED: Albuterol/Ipratropium 3.0-0.5 MG/3 ML Neb Soln NEB ONE (06:40)
[2021-11-17] MEDS ORDERED: Meropenem 500 MG SDV ONE (06:41)
[2021-11-17] MEDS ORDERED: Bupivacaine 0.5% 50 ML MDV ONE (06:47)
[2021-11-17] MEDS ORDERED: Lidocaine 1% with EPINEPHrine 1:100,000 50 ML MDV ONE (06:47)
[2021-11-17] MEDS ORDERED: Succinylcholine 200 MG/10 ML MDV ONE (06:59)
[2021-11-17] MEDS ORDERED: Dexamethasone 4 MG/ML SDV ONE (06:59)
[2021-11-17] MEDS ORDERED: Ondansetron 4 MG/2 ML SDV ONE (06:59)
[2021-11-17] MEDS ORDERED: Glycopyrrolate 0.2 MG/ML 5 ML MDV ONE (06:59)
[2021-11-17] MEDS ORDERED: Rocuronium 50 MG/5 ML Vial ONE ×2 (06:59→07:56)
[2021-11-17] MEDS ORDERED: Neostigmine Methylsulfate 1 MG/ML 5 ML Syringe ONE (06:59)
[2021-11-17] MEDS ORDERED: Propofol 200 MG/20 ML SDV ONE (06:59)
[2021-11-17] MEDS ORDERED: fentaNYL 250 MCG/5 ML SDV ONE ×2 (07:00→07:29)
[2021-11-17] MEDS ORDERED: cefOXitin 2 GM in Sodium Chloride 0.9% 50 ML IV ONE (07:15)
[2021-11-17] MEDS ORDERED: Ropivacaine 40 ML, dexAMETHasone 8 MG, EPINEPHrine 0.4 MG, Sodium Chloride 0.9% 37.6 ML NERVRT SCH ×4 (07:30)
[2021-11-17] MEDS ORDERED: Ketamine 21 MG in Sodium Chloride 0.9% 19.79 ML IV SCH (07:30)
[2021-11-17] MEDS ORDERED: Ketamine 500 MG/5 ML MDV IV SCH (07:30)
[2021-11-17] MEDS ORDERED: diphenhydrAMINE 50 MG/ML SDV IVPUSH PRN ×2 (07:40→11:00)
[2021-11-17] MEDS ORDERED: diphenhydrAMINE 25 MG Cap PO PRN (07:40)
[2021-11-17] MEDS ORDERED: Naloxone 0.4 MG/ML SDV IVPUSH PRN (07:40)
[2021-11-17] MEDS ORDERED: Ondansetron 4 MG/2 ML SDV IVPUSH PRN ×2 (07:40→11:00)
[2021-11-17] MEDS ORDERED: Naloxone 0.4 MG/ML SDV IV PRN (08:00)
[2021-11-17] MEDS ORDERED: fentaNYL 100 MCG/2 ML SDV ONE (08:10)
[2021-11-17] MEDS: HYDROmorphone/Normal Saline 6 MG/30 ML PCA Vial IV PRN ×3 (08:37→16:07)
[2021-11-17] MEDS: Dextrose 5%-Lactated Ringers 1,000 ML IV SCH ×2 (10:09→23:25)
[2021-11-17] MEDS ORDERED: QUEtiapine 100 MG Tab PO PRN (10:13)
[2021-11-17] MEDS ORDERED: Melatonin 3 MG Tab PO PRN (10:14)
[2021-11-17] MEDS ORDERED: Calcium Carbonate 500 MG Tab.Chew PO PRN (10:16)
[2021-11-17] MEDS ORDERED: Bismuth Subsalicylate 262 MG Tab.Chew PO PRN (10:17)
[2021-11-17] MEDS ORDERED: hydrOXYzine HCL 100 MG/2 ML SDV IM PRN (11:00)
[2021-11-17] MEDS ORDERED: Metoclopramide 10 MG/2 ML SDV IVPUSH PRN (11:00)
[2021-11-17] MEDS ORDERED: Albuterol/Ipratropium 3.0-0.5 MG/3 ML Neb Soln INH PRN (11:00)
[2021-11-17] MEDS ORDERED: Acetaminophen 500 MG Tab PO PRN (11:00)
[2021-11-17] MEDS ORDERED: Labetalol 20 MG/4 ML Syringe IVPUSH PRN (11:00)
[2021-11-17] MEDS: Albuterol/Ipratropium 3.0-0.5 MG/3 ML Neb Soln INH SCH ×3 (11:08→20:05)
[2021-11-17] MEDS: Lisinopril 10 MG Tab PO SCH (12:28)
[2021-11-17] MEDS: buPROPion 150 MG Tab.ER PO SCH (12:33)
[2021-11-17] MEDS: ceFAZolin 2 GM in Premix Bag 1 BAG IV SCH ×2 (14:19→21:42)
[2021-11-17] MEDS: Pantoprazole 40 MG Vial IVPUSH SCH (14:20)
[2021-11-17] MEDS: Gabapentin 300 MG Cap PO SCH ×2 (14:20→20:05)
[2021-11-17] MEDS: Acetaminophen 500 MG Tab PO SCH ×2 (14:20→21:42)
[2021-11-17] MEDS: MVI, Adult with Vitamin K 10 ML, Thiamine 200 MG, Zinc/Copper/Manganese/Selenium 1 ML i... IV SCH ×4 (16:10)
[2021-11-17] MEDS: levETIRAcetam 250 MG Tab PO SCH (20:05)
[2021-11-17] MEDS: Prazosin 1 MG Cap PO SCH ×2 (20:17→21:42)
[2021-11-18] MEDS: Acetaminophen 500 MG Tab PO SCH ×3 (05:45→21:06)
[2021-11-18] MEDS: ceFAZolin 2 GM in Premix Bag 1 BAG IV SCH (05:46)
[2021-11-18] MEDS: Dextrose 5%-Lactated Ringers 1,000 ML IV SCH ×2 (05:47→13:20)
[2021-11-18] MEDS: HYDROmorphone/Normal Saline 6 MG/30 ML PCA Vial IV PRN ×4 (05:49→21:00)
[2021-11-18] MEDS: Albuterol/Ipratropium 3.0-0.5 MG/3 ML Neb Soln INH SCH ×4 (07:08→21:10)
[2021-11-18] MEDS: buPROPion 150 MG Tab.ER PO SCH (08:47)
[2021-11-18] MEDS: Gabapentin 300 MG Cap PO SCH ×3 (08:48→21:05)
[2021-11-18] MEDS: Bisacodyl 5 MG Tab PO SCH ×2 (08:48→21:03)
[2021-11-18] MEDS: Lisinopril 10 MG Tab PO SCH (08:48)
[2021-11-18] MEDS: Celecoxib 200 MG Cap PO SCH ×2 (08:48→21:03)
[2021-11-18] MEDS: Loratadine 10 MG Tab PO SCH (08:49)
[2021-11-18] MEDS: Docusate Sodium 100 MG Cap PO SCH ×2 (08:49→21:03)
[2021-11-18] MEDS: levETIRAcetam 250 MG Tab PO SCH ×2 (08:49→21:04)
[2021-11-18] MEDS: Naltrexone 50 MG Tab PO SCH (11:23)
[2021-11-18] MEDS: Pantoprazole 40 MG Vial IVPUSH SCH (14:10)
[2021-11-18] MEDS: MVI, Adult with Vitamin K 10 ML, Thiamine 200 MG, Zinc/Copper/Manganese/Selenium 1 ML i... IV SCH ×4 (16:45)
[2021-11-18] MEDS: Prazosin 1 MG Cap PO SCH (21:05)
[2021-11-19] MEDS: Acetaminophen 500 MG Tab PO SCH ×3 (05:46→21:16)
[2021-11-19] MEDS ORDERED: oxyCODONE 5 MG Tab PO PRN (06:43)
[2021-11-19] MEDS: Albuterol/Ipratropium 3.0-0.5 MG/3 ML Neb Soln INH SCH ×4 (07:26→21:16)
[2021-11-19] MEDS ORDERED: Cyanocobalamin (Vitamin B12) 1,000 MCG/ML SDV IM ONE (09:00)
[2021-11-19] MEDS: Dextrose 5%-Lactated Ringers 1,000 ML IV SCH (09:40)
[2021-11-19] MEDS: levETIRAcetam 250 MG Tab PO SCH ×2 (10:01→21:16)
[2021-11-19] MEDS: Docusate Sodium 100 MG Cap PO SCH ×2 (10:01→21:15)
[2021-11-19] MEDS: Bisacodyl 5 MG Tab PO SCH ×2 (10:01→21:15)
[2021-11-19] MEDS: Loratadine 10 MG Tab PO SCH (10:01)
[2021-11-19] MEDS: Gabapentin 300 MG Cap PO SCH ×3 (10:02→21:15)
[2021-11-19] MEDS: buPROPion 150 MG Tab.ER PO SCH (10:02)
[2021-11-19] MEDS: Naltrexone 50 MG Tab PO SCH (10:02)
[2021-11-19] MEDS: Lisinopril 10 MG Tab PO SCH (10:02)
[2021-11-19] MEDS: Ibuprofen 600 MG Tab PO SCH ×3 (10:03→21:15)
[2021-11-19] MEDS: Celecoxib 200 MG Cap PO SCH (11:27)
[2021-11-19] MEDS: Pantoprazole 40 MG Vial IVPUSH SCH (13:54)
[2021-11-19] MEDS: Cyclobenzaprine 10 MG Tab PO PRN (19:30)
[2021-11-19] MEDS ORDERED: Docusate Sodium 100 MG Cap PO SCH (21:00)
[2021-11-19] MEDS: Prazosin 1 MG Cap PO SCH (21:17)
[2021-11-20] MEDS: Cyclobenzaprine 10 MG Tab PO PRN (05:50)
[2021-11-20] MEDS: Ibuprofen 600 MG Tab PO SCH ×4 (05:50→21:18)
[2021-11-20] MEDS: Acetaminophen 500 MG Tab PO SCH ×3 (05:50→21:17)
[2021-11-20] MEDS: Albuterol/Ipratropium 3.0-0.5 MG/3 ML Neb Soln INH SCH ×4 (07:19→21:16)
[2021-11-20] MEDS: Gabapentin 300 MG Cap PO SCH ×3 (09:31→21:17)
[2021-11-20] MEDS: levETIRAcetam 250 MG Tab PO SCH ×2 (09:33→21:16)
[2021-11-20] MEDS: Docusate Sodium 100 MG Cap PO SCH ×2 (09:33→21:16)
[2021-11-20] MEDS: Lisinopril 10 MG Tab PO SCH (09:34)
[2021-11-20] MEDS: Naltrexone 50 MG Tab PO SCH (09:37)
[2021-11-20] MEDS: Bisacodyl 5 MG Tab PO SCH ×2 (09:38→21:16)
[2021-11-20] MEDS: Loratadine 10 MG Tab PO SCH (09:38)
[2021-11-20] MEDS: buPROPion 150 MG Tab.ER PO SCH (09:40)
[2021-11-20] MEDS: Pantoprazole 40 MG Tab.CR PO SCH (13:56)
[2021-11-20] MEDS: Prazosin 1 MG Cap PO SCH (21:17)
[2021-11-21] MEDS: Ibuprofen 600 MG Tab PO SCH ×2 (05:01→09:47)
[2021-11-21] MEDS: Acetaminophen 500 MG Tab PO SCH (05:02)
[2021-11-21 07:08] VITALS: PULSE 68
[2021-11-21] MEDS: Albuterol/Ipratropium 3.0-0.5 MG/3 ML Neb Soln INH SCH (07:12)
[2021-11-21] MEDS: Naltrexone 50 MG Tab PO SCH (08:04)
[2021-11-21] MEDS: Gabapentin 300 MG Cap PO SCH (08:04)
[2021-11-21] MEDS: Loratadine 10 MG Tab PO SCH (08:05)
[2021-11-21] MEDS: Docusate Sodium 100 MG Cap PO SCH (08:05)
[2021-11-21] MEDS: Bisacodyl 5 MG Tab PO SCH (08:05)
[2021-11-21] MEDS: levETIRAcetam 250 MG Tab PO SCH (08:06)
[2021-11-21] MEDS: buPROPion 150 MG Tab.ER PO SCH (08:06)
[2021-11-21 08:07] VITALS: BP 128/76
[2021-11-21] MEDS: Pantoprazole 40 MG Tab.CR PO SCH (08:07)
[2021-11-21] MEDS: Lisinopril 10 MG Tab PO SCH (08:07)
== END 2021-11-21 10:58 | disposition other institution (70) | DRG 329 ==
LOC: JP.SDS 05:53 → EDSTATUS 07:45 → JP.MS 08:50
PROVIDERS: ADMIT Surgery; ATTEND Surgery
PROC: 0DBW0ZZ Excision of Peritoneum, Open Approach (ICD-10-PCS; principal; 2021-11-17)
PROC: 0DQ80ZZ Repair Small Intestine, Open Approach (ICD-10-PCS; 2021-11-17)
PROC: 0WUF0JZ Supplement Abdominal Wall with Synthetic Substitute, Open Approach (ICD-10-PCS; 2021-11-17)
PROC: 3E0M05Z Introduction of Adhesion Barrier into Peritoneal Cavity, Open Approach (ICD-10-PCS; 2021-11-17)
DX: K43.0 Incisional hernia with obstruction, without gangrene (principal); K65.1 Peritoneal abscess; K91.2 Postsurgical malabsorption, not elsewhere classified; E53.8 Deficiency of other specified B group vitamins; F32.A Depression, unspecified; F41.9 Anxiety disorder, unspecified; F43.10 Post-traumatic stress disorder, unspecified; I10 Essential (primary) hypertension; F17.210 Nicotine dependence, cigarettes, uncomplicated; H91.93 Unspecified hearing loss, bilateral; J45.909 Unspecified asthma, uncomplicated; E55.9 Vitamin D deficiency, unspecified; F15.90 Other stimulant use, unspecified, uncomplicated; Z98.84 Bariatric surgery status; K66.0 Peritoneal adhesions (postprocedural) (postinfection); Z79.899 Other long term (current) drug therapy
CPT/HCPCS: 88304; 94640; A9270-GY; C1713; C1781; C9113; J0171; J0330; J0690; J0694; J1100; J1170; J2020; J2185; J2405; J2704; J2710; J2795; J3010; J3411; J3420; J3490; J7121; J7620-GY

== ENCOUNTER 2022-01-12 07:01 | Inpatient (IN) | payer MEDICAID ==
[~2022-01-12 07:01] MED LIST: Dexamethasone 4 MG/ML SDV ONE; Glycopyrrolate 0.2 MG/ML 5 ML MDV ONE; Neostigmine Methylsulfate 1 MG/ML 5 ML Syringe ONE; Ondansetron 4 MG/2 ML SDV ONE; Propofol 200 MG/20 ML SDV ONE; Rocuronium 50 MG/5 ML Vial ONE; Succinylcholine 200 MG/10 ML MDV ONE; fentaNYL 250 MCG/5 ML SDV ONE
[2022-01-12] MEDS ORDERED: Bupivacaine 0.5% 50 ML MDV ONE (07:04)
[2022-01-12] MEDS ORDERED: Meropenem 500 MG SDV ONE (07:04)
[2022-01-12] MEDS ORDERED: Lidocaine 1% with EPINEPHrine 1:100,000 50 ML MDV ONE (07:04)
[2022-01-12] MEDS ORDERED: Naloxone 0.4 MG/ML SDV IVPUSH PRN (07:19)
[2022-01-12] MEDS ORDERED: diphenhydrAMINE 50 MG/ML SDV IVPUSH PRN ×2 (07:19→14:00)
[2022-01-12] MEDS ORDERED: Ondansetron 4 MG/2 ML SDV IVPUSH PRN ×2 (07:19→14:00)
[2022-01-12] MEDS ORDERED: diphenhydrAMINE 25 MG Cap PO PRN (07:19)
[2022-01-12] MEDS ORDERED: Gabapentin 300 MG Cap PO ONE (07:30)
[2022-01-12] MEDS ORDERED: Celecoxib 200 MG Cap PO ONE (07:30)
[2022-01-12] MEDS ORDERED: Acetaminophen 500 MG Tab PO ONE (07:30)
[2022-01-12] MEDS ORDERED: Naloxone 0.4 MG/ML SDV IV PRN (08:00)
[2022-01-12] MEDS: HYDROmorphone/Normal Saline 6 MG/30 ML PCA Vial IV PRN ×2 (08:06→19:27)
[2022-01-12] MEDS ORDERED: Dextrose 5%-Lactated Ringers 1,000 ML IV SCH (08:30)
[2022-01-12] MEDS ORDERED: Ketamine 500 MG/5 ML MDV IV SCH (09:00)
[2022-01-12] MEDS ORDERED: Ketamine 20 MG in Sodium Chloride 0.9% 19.8 ML IV SCH (09:00)
[2022-01-12] MEDS ORDERED: Ropivacaine 40 ML, dexAMETHasone 8 MG, EPINEPHrine 0.4 MG, Sodium Chloride 0.9% 37.6 ML NERVRT SCH ×4 (09:00)
[2022-01-12] MEDS ORDERED: Albuterol/Ipratropium 3.0-0.5 MG/3 ML Neb Soln NEB ONE (09:30)
[2022-01-12] MEDS ORDERED: ceFAZolin 2 GM in Premix Bag 1 BAG IV ONE (09:30)
[2022-01-12] MEDS ORDERED: Sodium Chloride 0.9% 10 ML ONE (10:25)
[2022-01-12] MEDS ORDERED: ePHEDrine 50 MG/ML SDV ONE (10:25)
[2022-01-12] MEDS ORDERED: Rocuronium 50 MG/5 ML Vial ONE (10:36)
[2022-01-12] MEDS ORDERED: fentaNYL 100 MCG/2 ML SDV ONE ×4 (10:51→11:55)
[2022-01-12] MEDS ORDERED: Lactated Ringers 1,000 ML ONE (10:55)
[2022-01-12] MEDS ORDERED: Cyclobenzaprine 10 MG Tab PO PRN (13:06)
[2022-01-12] MEDS ORDERED: Scopolamine 1.5 MG Transdermal Patch TOP PRN (13:10)
[2022-01-12] MEDS ORDERED: Diazepam 5 MG Tab PO PRN (13:11)
[2022-01-12] MEDS ORDERED: QUEtiapine 100 MG Tab PO PRN (13:12)
[2022-01-12] MEDS: Dextrose 5%-Lactated Ringers 1,000 ML IV SCH (13:18)
[2022-01-12] MEDS ORDERED: hydrOXYzine HCL 100 MG/2 ML SDV IM PRN (14:00)
[2022-01-12] MEDS ORDERED: Metoclopramide 10 MG/2 ML SDV IVPUSH PRN (14:00)
[2022-01-12] MEDS ORDERED: Labetalol 20 MG/4 ML Syringe IVPUSH PRN (14:00)
[2022-01-12] MEDS ORDERED: Albuterol/Ipratropium 3.0-0.5 MG/3 ML Neb Soln INH PRN (14:00)
[2022-01-12] MEDS ORDERED: Acetaminophen 500 MG Tab PO PRN (14:00)
[2022-01-12] MEDS: Albuterol/Ipratropium 3.0-0.5 MG/3 ML Neb Soln INH SCH ×2 (14:27→20:36)
[2022-01-12] MEDS: Gabapentin 300 MG Cap PO SCH ×2 (14:27→20:36)
[2022-01-12] MEDS: ceFAZolin 2 GM in Premix Bag 1 BAG IV SCH ×2 (15:06→23:49)
[2022-01-12] MEDS: Acetaminophen 500 MG Tab PO SCH ×2 (15:50→23:50)
[2022-01-12] MEDS: Pantoprazole 40 MG Vial IVPUSH SCH (15:52)
[2022-01-12] MEDS: MVI, Adult with Vitamin K 10 ML, Thiamine 200 MG, Zinc/Copper/Manganese/Selenium 1 ML i... IV SCH ×4 (16:10)
[2022-01-12] MEDS: levETIRAcetam 250 MG Tab PO SCH (20:35)
[2022-01-13] MEDS: Dextrose 5%-Lactated Ringers 1,000 ML IV SCH ×2 (03:41→10:43)
[2022-01-13] MEDS ORDERED: Iopamidol 612 MG/ML 50 ML SDV PO ONE (03:51)
[2022-01-13] MEDS: HYDROmorphone/Normal Saline 6 MG/30 ML PCA Vial IV PRN ×3 (04:42→19:29)
[2022-01-13] MEDS: Albuterol/Ipratropium 3.0-0.5 MG/3 ML Neb Soln INH SCH ×4 (07:33→22:34)
[2022-01-13] MEDS: ceFAZolin 2 GM in Premix Bag 1 BAG IV SCH ×3 (08:16→23:15)
[2022-01-13] MEDS: Acetaminophen 500 MG Tab PO SCH ×3 (08:22→23:15)
[2022-01-13] MEDS: levETIRAcetam 250 MG Tab PO SCH ×2 (08:24→22:40)
[2022-01-13] MEDS: Celecoxib 200 MG Cap PO SCH ×2 (08:24→22:40)
[2022-01-13] MEDS: Lisinopril 5 MG Tab PO SCH (08:25)
[2022-01-13] MEDS: Gabapentin 300 MG Cap PO SCH ×3 (08:28→22:40)
[2022-01-13] MEDS: buPROPion 150 MG Tab.ER PO SCH (08:29)
[2022-01-13] MEDS ORDERED: Prazosin 1 MG Cap PO SCH (09:00)
[2022-01-13] MEDS: Pantoprazole 40 MG Vial IVPUSH SCH (15:56)
[2022-01-13] MEDS: MVI, Adult with Vitamin K 10 ML, Thiamine 200 MG, Zinc/Copper/Manganese/Selenium 1 ML i... IV SCH ×4 (15:56)
[2022-01-13] MEDS: Prazosin 1 MG Cap PO SCH (22:40)
[2022-01-14] MEDS: Dextrose 5%-Lactated Ringers 1,000 ML IV SCH ×2 (03:11→23:04)
[2022-01-14] MEDS: HYDROmorphone/Normal Saline 6 MG/30 ML PCA Vial IV PRN ×3 (03:29→17:18)
[2022-01-14] MEDS: Albuterol/Ipratropium 3.0-0.5 MG/3 ML Neb Soln INH SCH ×4 (06:59→20:33)
[2022-01-14] MEDS: ceFAZolin 2 GM in Premix Bag 1 BAG IV SCH (08:13)
[2022-01-14] MEDS: Acetaminophen 500 MG Tab PO SCH ×3 (08:14→23:01)
[2022-01-14] MEDS: Celecoxib 200 MG Cap PO SCH ×2 (08:14→20:36)
[2022-01-14] MEDS: Gabapentin 300 MG Cap PO SCH ×3 (08:14→20:36)
[2022-01-14] MEDS: levETIRAcetam 250 MG Tab PO SCH ×2 (08:15→20:36)
[2022-01-14] MEDS: buPROPion 150 MG Tab.ER PO SCH (08:15)
[2022-01-14] MEDS ORDERED: Cyanocobalamin (Vitamin B12) 1,000 MCG/ML SDV IM ONE (09:00)
[2022-01-14] MEDS: Lisinopril 5 MG Tab PO SCH (11:09)
[2022-01-14] MEDS: Docusate Sodium 100 MG Cap PO SCH ×2 (11:13→20:36)
[2022-01-14] MEDS: Bisacodyl 5 MG Tab PO SCH ×2 (11:13→20:36)
[2022-01-14] MEDS: Pantoprazole 40 MG Vial IVPUSH SCH (17:23)
[2022-01-14] MEDS: Prazosin 1 MG Cap PO SCH (20:37)
[2022-01-15] MEDS: HYDROmorphone/Normal Saline 6 MG/30 ML PCA Vial IV PRN (03:06)
[2022-01-15] MEDS: Albuterol/Ipratropium 3.0-0.5 MG/3 ML Neb Soln INH SCH ×4 (06:59→20:38)
[2022-01-15] MEDS: oxyCODONE 5 MG Tab PO PRN ×3 (08:35→20:29)
[2022-01-15] MEDS: Docusate Sodium 100 MG Cap PO SCH ×2 (08:36→20:34)
[2022-01-15] MEDS: Gabapentin 300 MG Cap PO SCH ×3 (08:36→20:35)
[2022-01-15] MEDS: buPROPion 150 MG Tab.ER PO SCH (08:36)
[2022-01-15] MEDS: Celecoxib 200 MG Cap PO SCH ×2 (08:37→20:33)
[2022-01-15] MEDS: Acetaminophen 500 MG Tab PO SCH ×3 (08:37→23:09)
[2022-01-15] MEDS: Bisacodyl 5 MG Tab PO SCH ×2 (08:37→20:31)
[2022-01-15] MEDS: levETIRAcetam 250 MG Tab PO SCH ×2 (08:38→20:33)
[2022-01-15] MEDS: Magnesium Hydroxide 400 MG/5 ML Susp 30 ML Cup PO SCH ×2 (10:29→20:31)
[2022-01-15] MEDS: Lisinopril 5 MG Tab PO SCH (11:34)
[2022-01-15] MEDS: Pantoprazole 40 MG Vial IVPUSH SCH (15:55)
[2022-01-15] MEDS: Prazosin 1 MG Cap PO SCH (20:35)
[2022-01-16] MEDS: Albuterol/Ipratropium 3.0-0.5 MG/3 ML Neb Soln INH SCH ×2 (07:23→10:53)
[2022-01-16] MEDS ORDERED: Magnesium Hydroxide 400 MG/5 ML Susp 30 ML Cup PO PRN (08:00)
[2022-01-16 08:03] VITALS: BP 114/75; PULSE 94
[2022-01-16] MEDS: Celecoxib 200 MG Cap PO SCH (08:05)
[2022-01-16] MEDS: Gabapentin 300 MG Cap PO SCH (08:05)
[2022-01-16] MEDS: Bisacodyl 5 MG Tab PO SCH (08:05)
[2022-01-16] MEDS: Lisinopril 5 MG Tab PO SCH (08:06)
[2022-01-16] MEDS: Docusate Sodium 100 MG Cap PO SCH (08:06)
[2022-01-16] MEDS: Acetaminophen 500 MG Tab PO SCH (08:06)
[2022-01-16] MEDS: levETIRAcetam 250 MG Tab PO SCH (08:06)
[2022-01-16] MEDS: buPROPion 150 MG Tab.ER PO SCH (08:07)
== END 2022-01-16 12:35 | disposition other institution (70) | DRG 336 ==
LOC: JP.SDS 07:01 → EDSTATUS 11:15 → JP.MS 12:00
PROVIDERS: ADMIT Surgery; ATTEND Surgery
PROC: 0WUF0JZ Supplement Abdominal Wall with Synthetic Substitute, Open Approach (ICD-10-PCS; principal; 2022-01-12)
PROC: 0DN80ZZ Release Small Intestine, Open Approach (ICD-10-PCS; 2022-01-12)
PROC: 3E0M05Z Introduction of Adhesion Barrier into Peritoneal Cavity, Open Approach (ICD-10-PCS; 2022-01-12)
DX: K95.89 Other complications of other bariatric procedure (principal); K43.0 Incisional hernia with obstruction, without gangrene; K56.51 Intestinal adhesions [bands], with partial obstruction; F15.10 Other stimulant abuse, uncomplicated; I10 Essential (primary) hypertension; J45.909 Unspecified asthma, uncomplicated; F43.10 Post-traumatic stress disorder, unspecified; E55.9 Vitamin D deficiency, unspecified; F41.9 Anxiety disorder, unspecified; H91.93 Unspecified hearing loss, bilateral; I45.81 Long QT syndrome; Z79.899 Other long term (current) drug therapy
CPT/HCPCS: 36415; 74240; 74240-26; 80053; 82728; 83735; 83880; 84100; 85025; 85027; 88305; 94640; A9270-GY; C1713; C1781; C9113; J0171; J0330; J0690; J1100; J1170; J2020; J2185; J2405; J2704; J2710; J2795; J3010; J3411; J3420; J3490; J7120; J7121; J7620; Q9967

== ENCOUNTER 2022-06-12 06:39 | Day surgery (SDC) | payer MEDICAID ==
[2022-06-12] MEDS ORDERED: fentaNYL 100 MCG/2 ML SDV ONE (07:02)
[2022-06-12] MEDS ORDERED: Propofol 200 MG/20 ML SDV ONE (07:02)
[2022-06-12] MEDS ORDERED: Midazolam 1 MG/ML 2 ML SDV ONE (07:02)
[2022-06-12] MEDS ORDERED: Dextrose 5%-Lactated Ringers 1,000 ML IV SCH (08:15)
[2022-06-12 10:23] VITALS: BP 96/58; PULSE 70
== END 2022-06-12 10:25 | disposition home or self-care (01) ==
LOC: JP.SDS 06:39
PROVIDERS: ATTEND Surgery
DX: R19.5 Other fecal abnormalities (principal); J45.909 Unspecified asthma, uncomplicated; F17.200 Nicotine dependence, unspecified, uncomplicated; I10 Essential (primary) hypertension; F43.10 Post-traumatic stress disorder, unspecified
CPT/HCPCS: 45330; J2250; J2704; J3010; J7121

== ENCOUNTER 2022-07-13 08:54 | Day surgery (SDC) | payer MEDICAID ==
[2022-07-13] MEDS: Acetaminophen 500 MG Tab PO ONE (09:26)
[2022-07-13] MEDS: Gabapentin 300 MG Cap PO ONE (09:26)
[2022-07-13] MEDS: Dextrose 5%-Lactated Ringers 1,000 ML IV SCH (09:28)
[2022-07-13] MEDS: levETIRAcetam 250 MG Tab PO ONE (09:43)
[2022-07-13 10:01] LABS: ESTIMATED GFR 67 mL/min (>60)
[2022-07-13] MEDS: Albuterol/Ipratropium 3.0-0.5 MG/3 ML Neb Soln NEB ONE (10:06)
[2022-07-13] MEDS: ceFAZolin 2 GM in Sodium Chloride 0.9% 50 ML IV ONE (11:52)
[2022-07-13] MEDS ORDERED: fentaNYL 250 MCG/5 ML SDV ONE (12:24)
[2022-07-13] MEDS: Lidocaine 1% with EPINEPHrine 1:100,000 50 ML MDV ONE (12:26)
[2022-07-13] MEDS: Bupivacaine 0.5% 50 ML MDV ONE (12:26)
[2022-07-13] MEDS: Meropenem 500 MG SDV ONE (12:27)
[2022-07-13] MEDS: Linezolid 600 MG/300 ML Premix Bag IRR ONE (12:27)
[2022-07-13] MEDS ORDERED: Rocuronium 50 MG/5 ML Vial ONE (12:30)
[2022-07-13] MEDS ORDERED: Ketorolac 30 MG/ML SDV ONE (12:48)
[2022-07-13] MEDS ORDERED: Lactated Ringers 1,000 ML ONE (12:49)
[2022-07-13 14:10] VITALS: BP 114/79; PULSE 87
== END 2022-07-13 14:40 | disposition home or self-care (01) ==
LOC: JP.SDS 08:54
PROVIDERS: ATTEND Surgery
DX: K43.0 Incisional hernia with obstruction, without gangrene (principal); J45.909 Unspecified asthma, uncomplicated; F41.9 Anxiety disorder, unspecified; E55.9 Vitamin D deficiency, unspecified; F17.200 Nicotine dependence, unspecified, uncomplicated; G47.9 Sleep disorder, unspecified; F32.9 Major depressive disorder, single episode, unspecified; Z95.1 Presence of aortocoronary bypass graft; Z98.890 Other specified postprocedural states; Z79.899 Other long term (current) drug therapy; Z88.8 Allergy status to other drugs, medicaments and biological substances; Z91.030 Bee allergy status; Z88.6 Allergy status to analgesic agent
CPT/HCPCS: 36415; 80053; 82728; 83735; 84100; 85027; 94640; A9270-GY; C1781; J0330; J0690; J1100; J1885; J2020; J2185; J2405; J2704; J2710; J3010; J3490; J7120; J7121; J7620

== ENCOUNTER 2023-02-19 06:47 | Day surgery (SDC) | payer MEDICAID ==
[~2023-02-19 06:47] MED LIST changes: +Bupivacaine 0.5% 50 ML MDV ONE; -Dexamethasone 4 MG/ML SDV ONE; -Glycopyrrolate 0.2 MG/ML 5 ML MDV ONE; +Lidocaine 1% with EPINEPHrine 1:100,000 50 ML MDV ONE; -Neostigmine Methylsulfate 1 MG/ML 5 ML Syringe ONE; -Ondansetron 4 MG/2 ML SDV ONE; -Propofol 200 MG/20 ML SDV ONE; -Rocuronium 50 MG/5 ML Vial ONE; -Succinylcholine 200 MG/10 ML MDV ONE; -fentaNYL 250 MCG/5 ML SDV ONE
[2023-02-19] MEDS ORDERED: fentaNYL 100 MCG/2 ML SDV ONE ×2 (07:00→08:09)
[2023-02-19] MEDS ORDERED: Propofol 200 MG/20 ML SDV ONE ×2 (07:00→08:27)
[2023-02-19] MEDS ORDERED: Midazolam 1 MG/ML 2 ML SDV ONE (07:00)
[2023-02-19] MEDS ORDERED: Acetaminophen 500 MG Tab PO ONE (07:15)
[2023-02-19] MEDS ORDERED: Albuterol/Ipratropium 3.0-0.5 MG/3 ML Neb Soln NEB ONE (07:30)
[2023-02-19] MEDS ORDERED: Dextrose 5%-Lactated Ringers 1,000 ML IV SCH (07:30)
[2023-02-19] MEDS ORDERED: ceFAZolin 2 GM in Premix Bag 1 BAG IV ONE (08:00)
[2023-02-19] MEDS ORDERED: Bupivacaine 0.5% 50 ML MDV INJECT ONE (08:31)
[2023-02-19] MEDS ORDERED: Lidocaine 1% with EPINEPHrine 1:100,000 50 ML MDV INJECT ONE (08:32)
[2023-02-19] MEDS ORDERED: Bacitracin Oint 1 GM U/D Packet ONE (08:33)
[2023-02-19 09:46] VITALS: BP 107/75; PULSE 79
== END 2023-02-19 09:48 | disposition home or self-care (01) ==
LOC: JP.SDS 06:47
PROVIDERS: ATTEND Surgery
DX: L72.0 Epidermal cyst (principal); F43.10 Post-traumatic stress disorder, unspecified; F41.9 Anxiety disorder, unspecified; K90.9 Intestinal malabsorption, unspecified; F32.A Depression, unspecified; F17.200 Nicotine dependence, unspecified, uncomplicated
CPT/HCPCS: 11403; 12032; 88304; 94640; A9270; J0690; J2250; J2704; J3010; J3490; J7121; J7620